=== PATIENT | male | born 1955 | race Caucasian/White ===

== ENCOUNTER 2017-04-27 14:39 | Emergency (ER) | payer BC ==
[~2017-04-27] VITALS: Ht 190.5 cm; Wt 83.4 kg
[~2017-04-27 14:39] MED LIST: AMOXICILLIN500 MG OR; MONOPRIL10 MG OR; PERCOCET 5/325M1 TAB OR
[2017-04-27 15:13] LABS: HEMATOCRIT 46.2 % (39.0-50.0); HEMOGLOBIN 15.9 g/dl (14.0-18.0); IMMATURE GRANULOCYTES 0.4 % (0.0-1.0); MEAN CELL VOLUME 94.7 fL CALC (80.0-100.0); MEAN CORPUSCULAR HGB 32.6 pG CALC (26.0-32.0); MEAN CORPUSCULAR HGB CONC 34.4 g/L CALC (32.0-36.0); RED BLOOD COUNT 4.88 mill/uL (4.70-6.10); RED CELL DISTRI WIDTH 11.5 % (11.5-15.5)
[2017-04-27 15:28] LABS: INFLUENZA A NONE DETECTED (NONE DETECT); INFLUENZA B NONE DETECTED (NONE DETECT)
[2017-04-27 15:31] LABS: ANION GAP 21 (6-22 (CALC)); BUN 22 mg/dL (8-23); BUN/CREATININE RATIO 23 (12-20 (CALC)); CALCIUM 9.4 mg/dL (8.4-10.2); CARBON DIOXIDE 17 mmol/l (22-30); CHLORIDE 109 mmol/l (95-108); GFR > 60 ML/MIN (>=60 (CALC)); GFR FOR AFR.AMER. > 60 ML/MIN (>=60 (CALC)); GLUCOSE 121 mg/dL (82-115); POTASSIUM 3.9 mmol/l (3.5-5.1); SODIUM 143 mmol/l (137-146)
[2017-04-27 16:14] VITALS: BP 152/104
== END 2017-04-27 16:30 | disposition home or self-care (01) | DRG 153 ==
LOC: ED 14:39
PROVIDERS: Family Medicine
DX: J06.9 Acute upper respiratory infection, unspecified (principal); R06.02 Shortness of breath; R11.0 Nausea; R53.1 Weakness

== ENCOUNTER 2022-02-17 07:55 | Observation (INO) | payer MEDICARE ==
[~2022-02-17] VITALS: Ht 190.5 cm; Wt 80.6 kg
[2022-02-17] VITALS (23 sets, daily range): BP systolic 110–159; BP diastolic 74–99
[~2022-02-17 07:55] MED LIST changes: +ASPIRIN 81 LOW81 MG; +MONOPRIL10 MG PO; +OMEPRAZOLE DR40 MG
[2022-02-17 08:34] LABS: IMMATURE GRANULOCYTES 0.3 % (0.0-5.0); MEAN CELL VOLUME 96.8 fL CALC (80.0-100.0); MEAN CORPUSCULAR HGB 33.5 pG CALC (26.0-32.0); MEAN CORPUSCULAR HGB CONC 34.6 g/dL CAL (32.0-36.0); NEUT# 5.42 thou/uL (1.82-7.42); RED BLOOD COUNT 5.37 mill/uL (4.70-6.10); RED CELL DISTRI WIDTH 11.9 % (11.5-15.5)
[2022-02-17 08:39] LABS: ALBUMIN 5.1 g/dL (3.2-5.0); ALKALINE PHOSPHATASE 72 u/l (38-126); CARBON DIOXIDE 16 mmol/l (22-30); CHLORIDE 100 mmol/l (95-108); CREATININE 1.9 mg/dL (0.7-1.3); GFR FOR AFR.AMER. 43 ML/MIN (>=60 (CALC)); GFR OTHER RACES 36 ML/MIN (>=60 (CALC)); POTASSIUM 3.7 mmol/l (3.5-5.1); SGOT/AST 45 u/l (19-48)
[2022-02-17 08:48] LABS: ANION GAP 22 (6-22 (CALC)); BILIRUBIN, TOTAL 0.9 mg/dL (0.0-1.4); BUN 47 mg/dL (8-23); BUN/CREATININE RATIO 25 (12-20 (CALC)); SODIUM 134 mmol/l (137-146); TOTAL PROTEIN 9.3 g/dL (6.3-8.2)
[2022-02-18 00:11] VITALS: BP 143/92
[2022-02-18 03:58] VITALS: BP 148/95
[2022-02-18 05:58] LABS: HEMOGLOBIN 16.2 g/dl (14.0-18.0); MEAN CELL VOLUME 96.2 fL CALC (80.0-100.0); MEAN CORPUSCULAR HGB 33.9 pG CALC (26.0-32.0); MEAN CORPUSCULAR HGB CONC 35.2 g/dL CAL (32.0-36.0); RED BLOOD COUNT 4.78 mill/uL (4.70-6.10); RED CELL DISTRI WIDTH 11.6 % (11.5-15.5)
[2022-02-18 06:09] LABS: ANION GAP 17 (6-22 (CALC)); BUN 34 mg/dL (8-23); BUN/CREATININE RATIO 33 (12-20 (CALC)); CARBON DIOXIDE 19 mmol/l (22-30); CHLORIDE 104 mmol/l (95-108); GFR FOR AFR.AMER. > 60 ML/MIN (>=60 (CALC)); GFR OTHER RACES > 60 ML/MIN (>=60 (CALC)); MAGNESIUM 2.7 mg/dL (1.6-2.3); POTASSIUM 3.8 mmol/l (3.5-5.1); SODIUM 137 mmol/l (137-146)
[2022-02-18 06:48] VITALS: BP 148/95
== END 2022-02-18 13:27 | disposition home or self-care (01) ==
LOC: ED 07:55 → ED-I 11:03 → ED 11:03 → MS2 11:58
PROVIDERS: Family Medicine; ADMIT Internal Medicine; ATTEND Internal Medicine
DX: J10.1 Influenza due to other identified influenza virus with other respiratory manifestations (principal); E86.0 Dehydration; N17.9 Acute kidney failure, unspecified; I10 Essential (primary) hypertension; K21.9 Gastro-esophageal reflux disease without esophagitis; Z20.822 Contact with and (suspected) exposure to COVID-19
CPT/HCPCS: J1650; J3475

== ENCOUNTER 2022-04-28 09:35 | Emergency (ER) | payer MEDICARE ==
[~2022-04-28] VITALS: Ht 193 cm; Wt 87.2 kg
[2022-04-28 11:28] VITALS: BP 123/70
== END 2022-04-28 11:40 | disposition home or self-care (01) ==
LOC: ED 09:35
DX: S00.03XA Contusion of scalp, initial encounter (principal); S00.83XA Contusion of other part of head, initial encounter; S80.211A Abrasion, right knee, initial encounter; I10 Essential (primary) hypertension; W22.8XXA Striking against or struck by other objects, initial encounter

== ENCOUNTER 2023-11-24 15:55 | Emergency (ER) | payer MEDICARE ==
[~2023-11-24] VITALS: Ht 193 cm; Wt 72.0 kg
[2023-11-24 16:09] VITALS: BP 131/96
[2023-11-24 17:25] LABS: BASO% 0.3 % (0-3); EOS% 1.7 % (0-8); IMMATURE GRANULOCYTES 0.3 % (0.0-5.0); LYMPH% 19.3 % (15-41); MEAN CORPUSCULAR HGB 33.3 pG CALC (26.0-32.0); MEAN CORPUSCULAR HGB CONC 32.7 g/dL CAL (32.0-36.0); MONO% 8.4 % (2-13); NEUT# 6.7 thou/uL (1.82-7.42); RED BLOOD COUNT 3.84 mill/uL (4.70-6.10); RED CELL DISTRI WIDTH 12.5 % (11.5-15.5)
[2023-11-24 17:27] LABS: HEMATOCRIT 39.2 % (39.0-50.0); HEMOGLOBIN 12.8 g/dl (14.0-18.0); MEAN CELL VOLUME 102.1 fL CALC (80.0-100.0)
[2023-11-24 17:46] LABS: ACT PARTIAL THROMBO TIME 24.5 SECONDS (20.0-32.5); ALBUMIN 4.6 g/dL (3.2-5.0); BILIRUBIN, TOTAL 0.7 mg/dL (0.2-1.3); C-REACTIVE PROTEIN 0.6 mg/dL (0-0.9); CREATININE 1.7 mg/dL (0.7-1.3); INTERNATIONAL NORMALIZED RATIO 1.1 RATIO (0.7-1.3); POTASSIUM 3.9 mmol/l (3.5-5.1); TOTAL PROTEIN 7.6 g/dL (6.3-8.2)
[2023-11-24 17:48] LABS: PROTHROMBIN TIME 10.6 SECONDS (9.0-12.5)
[2023-11-24] MEDS ORDERED: ENOXAPARIN SODIUM 100 MG/ML SYR SC ONE (18:05)
[2023-11-24 18:20] LABS: D-DIMER > 35.20 mg/L (0.19-0.60)
[2023-11-24] MEDS ORDERED: XARELTO STARTER1 TAB PO (18:20)
[2023-11-24 18:22] VITALS: BP 134/83
[2023-11-24 18:30] VITALS: BP 127/73
[2023-11-24 18:39] VITALS: BP 127/73
== END 2023-11-24 18:46 | disposition home or self-care (01) ==
LOC: ED 15:55
PROVIDERS: Nurse Practitioner
DX: I82.411 Acute embolism and thrombosis of right femoral vein (principal); I82.431 Acute embolism and thrombosis of right popliteal vein; I10 Essential (primary) hypertension
CPT/HCPCS: J1650